=== PATIENT | female | born 1950 | race Caucasian/White ===

== ENCOUNTER → 2016-12-04 | Outpatient (CLI) | payer MEDICARE ==
[~2016-12-04] MED LIST: CALC400T6 PO; CHOL2000 PO; Cranberry PO; ESTR0.5T PO; Fiber Well PO; LACT1CAP37 PO; MULT1CAP19 PO; OMEG1CAP6 PO; VIT1CAPS42 PO
== END | disposition home or self-care (01) ==
LOC: STAR 12:45
PROVIDERS: ATTEND Orthopaedic Surgery
DX: Z01.818 Encounter for other preprocedural examination (principal); M17.11 Unilateral primary osteoarthritis, right knee; J45.909 Unspecified asthma, uncomplicated
CPT/HCPCS: 81003; 87081; 93005

== ENCOUNTER 2016-12-19 10:30 | Inpatient (IN) | payer MEDICARE ==
[2016-12-04 15:10] VITALS: BP 161/81
[~2016-12-19] VITALS: Ht 167.6 cm; Wt 75.6 kg
[~2016-12-19 10:30] MED LIST changes: +TRANEXAMIC ACID 100 MG/ML, 10ML ONE
[2016-12-19] MEDS ORDERED: LIDOCAINE 1%, 2ML ONE (12:45)
[2016-12-19] MEDS ORDERED: VANCOMYCIN PMX 1GM/200ML 200 ML IV ONE (12:59)
[2016-12-19] MEDS ORDERED: LACTATED RINGERS 1,000 ML IV SCH (13:05)
[2016-12-19] MEDS ORDERED: ROPIvacaine/PF 0.5%, 20 ML ONE (13:18)
[2016-12-19] MEDS ORDERED: FENTANYL PF 100 MCG/2ML ONE ×3 (13:23→16:53)
[2016-12-19] MEDS ORDERED: MIDAZOLAM 1 MG/ML, 2ML ONE (13:24)
[2016-12-19] MEDS ORDERED: ONDANSETRON 4 MG TABLET PO PRN (13:30)
[2016-12-19] MEDS ORDERED: morphine SULFATE 10 MG/ML, 1ML IV PRN (13:30)
[2016-12-19] MEDS ORDERED: BISACODYL 10 MG SUPP PR PRN (13:30)
[2016-12-19] MEDS: HYDROcodone/APAP 10/325 MG TABLET PO SCH ×3 (13:30→23:43)
[2016-12-19] MEDS ORDERED: MAGNESIUM HYDROXIDE 8%, 30ML UDC PO PRN (13:30)
[2016-12-19] MEDS ORDERED: LIDOCAINE 1%, 2ML SQ PRN (13:30)
[2016-12-19] MEDS ORDERED: ONDANSETRON 2MG/ML, 2ML IV PRN (13:30)
[2016-12-19] MEDS ORDERED: SENNA/DOCUSATE TABLET PO PRN (13:30)
[2016-12-19] MEDS: SCOPOLAMINE PATCH, 1.5MG PATCH.TD72 TD SCH (13:30)
[2016-12-19] MEDS ORDERED: DIPHENHYDRAMINE 25 MG CAPSULE PO PRN (13:30)
[2016-12-19] MEDS ORDERED: CEFAZOLIN 1,000 MG ONE (13:44)
[2016-12-19] MEDS ORDERED: ROCURONIUM 10 MG/ML ONE (13:44)
[2016-12-19] MEDS ORDERED: NEOSTIGMINE 1 MG/ML, 10ML ONE (13:44)
[2016-12-19] MEDS ORDERED: GLYCOPYRROLATE 0.2MG/1ML ONE (13:44)
[2016-12-19] MEDS ORDERED: DEXAMETHASONE 4 MG/ML, 1ML ONE (13:44)
[2016-12-19] MEDS ORDERED: PROPOFOL 10 MG/ML, 20ML ONE (13:44)
[2016-12-19] MEDS ORDERED: TRANEXAMIC ACID 100 MG/ML, 10ML ONE (13:58)
[2016-12-19] MEDS ORDERED: ALBUTEROL SULFATE 2.5 MG/3 ML NPPB PRN (14:30)
[2016-12-19] MEDS ORDERED: METOPROLOL 1 MG/ML, 5ML IV PRN (14:30)
[2016-12-19] MEDS ORDERED: OXYcodone 5 MG/5 ML ORAL.SOL UDC PO PRN (14:30)
[2016-12-19] MEDS ORDERED: HYDROmorphone 1 MG/ML, 1ML IV PRN (14:30)
[2016-12-19] MEDS ORDERED: LABETALOL 5MG/ML, 20ML IV PRN (14:30)
[2016-12-19] MEDS ORDERED: PROMETHAZINE 25 MG/ML, 1ML IV PRN (14:30)
[2016-12-19] MEDS ORDERED: hydrALAzine 20 MG/ML, 1ML IV PRN (14:30)
[2016-12-19] MEDS ORDERED: ONDANSETRON 2MG/ML, 2ML IVPush PRN (14:30)
[2016-12-19] MEDS ORDERED: ACETAMINOPHEN 325 MG TABLET PO PRN (14:30)
[2016-12-19] MEDS ORDERED: EPHEDRINE 50 MG/ML, 1ML IVPush PRN (14:30)
[2016-12-19] MEDS ORDERED: OXYcodone 5 MG/5 ML ORAL.SOL UDC ONE (15:48)
[2016-12-19] MEDS ORDERED: ACETAMINOPHEN 650 MG/20.3 ML UDC ONE (15:48)
[2016-12-19] MEDS: FENTANYL PF 100 MCG/2ML IV PRN ×3 (16:03→16:20)
[2016-12-19] MEDS: D5%-0.45% NACL 1,000 ML IV SCH (18:39)
[2016-12-19] MEDS: DOCUSATE 100 MG CAPSULE PO SCH (20:45)
[2016-12-19] MEDS ORDERED: ESTRADIOL 0.5 MG TABLET PO SCH (21:00)
[2016-12-19] MEDS: CEFAZOLIN PMX 1GM/50ML 50 ML IVPB SCH (21:56)
[2016-12-20 02:00] VITALS: BP 114/68
[2016-12-20] MEDS: HYDROcodone/APAP 10/325 MG TABLET PO SCH ×3 (03:13→11:17)
[2016-12-20] MEDS: SCOPOLAMINE PATCH, 1.5MG PATCH.TD72 TD SCH (04:01)
[2016-12-20 04:15] VITALS: BP 110/65
[2016-12-20] MEDS: D5%-0.45% NACL 1,000 ML IV SCH (05:20)
[2016-12-20] MEDS: CEFAZOLIN PMX 1GM/50ML 50 ML IVPB SCH (05:23)
[2016-12-20] MEDS ORDERED: ASPIRIN 325 MG TABLET EC PO SCH (06:00)
[2016-12-20] MEDS: DOCUSATE 100 MG CAPSULE PO SCH (07:52)
[2016-12-20 08:00] VITALS: BP 99/61
[2016-12-20] MEDS ORDERED: LACTOBACILLUS CHEW TABLET PO SCH (09:00)
[2016-12-20] MEDS ORDERED: KETOROLAC 30 MG/1 ML IV SCH (13:30)
[2016-12-20 14:21] VITALS: BP 90/47
[2016-12-20] MEDS ORDERED: HYDR-3307 PO (15:00)
== END 2016-12-20 15:20 | disposition home or self-care (01) | DRG 470 ==
LOC: ORIP 12:30 → 4NOR 17:00 → DCLOUNGE 12-20 14:59
PROVIDERS: ADMIT Orthopaedic Surgery; ATTEND Orthopaedic Surgery
PROC: 0SRC0J9 Replacement of Right Knee Joint with Synthetic Substitute, Cemented, Open Approach (ICD-10-PCS; principal; 2016-12-19 15:00)
DX: M17.11 Unilateral primary osteoarthritis, right knee (principal); M21.061 Valgus deformity, not elsewhere classified, right knee; Z79.899 Other long term (current) drug therapy; Z90.710 Acquired absence of both cervix and uterus; Z72.89 Other problems related to lifestyle
CPT/HCPCS: C1713; J0690; J1100; J1885; J2250; J2405; J2704; J2710; J2795; J3010; J3370; J3490; C1776; J7120

== ENCOUNTER → 2017-02-03 | Outpatient (CLI) | payer MEDICARE ==
[~2017-02-03] MED LIST changes: +HYDR-3307 PO; -TRANEXAMIC ACID 100 MG/ML, 10ML ONE
== END | disposition home or self-care (01) ==
LOC: CFH 09:07
PROVIDERS: ATTEND Student in an Organized Health Care Education/Training Program
DX: Z12.31 Encounter for screening mammogram for malignant neoplasm of breast (principal)
CPT/HCPCS: G0202

== ENCOUNTER → 2018-08-04 | Outpatient (CLI) | payer MEDICARE, OTHER | END | disposition home or self-care (01) | LOC: CFH 09:14 | PROVIDERS: ATTEND Genetic Counselor, MS | DX: Z12.31 Encounter for screening mammogram for malignant neoplasm of breast (principal) | CPT/HCPCS: 77063; 77067 ==